=== PATIENT | female | born 1965 | race Caucasian/White ===

== ENCOUNTER 2017-01-16 15:03 | Emergency (ER) | payer BC ==
[2017-01-16 15:23] VITALS: BP 138/82
--- NOTE | 2017-01-16 15:53 | EDM.PDOC ---
Scribed by Lauren Broderick 01/16/17 5030 for Curry Miller MD ED HPI GENERAL MEDICAL PROBLEM - General Chief Complaint: Upper Extremity Injury/Pain Stated Complaint: SHOLDER PAIN [id number] Time Seen by Provider: 01/16/17 15:28 Source of Information: Reports: Patient, RN, RN Notes Reviewed History Limitations: Reports: No Limitations - History of Present Illness INITIAL COMMENTS - FREE TEXT/NARRATIVE: Complains of severe left shoulder pain for the past couple of days without specific injury. Has history of repetitive upper extremity work throughout her entire adult life. The pain is improved when the should is immobilized at rest and significantly increases with range of motion. 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) Left Shoulder Pain Score (Numeric/FACES): 8 - Related Data Allergies Allergy/AdvReac Type Severity Reaction Status Date / Time No Known Allergies Allergy Verified 01/16/17 15:13 Home Meds: Home Meds Citalopram Hydrobromide [Celexa] 1 tab PO DAILY 01/16/17 [History] Multivitamin [One Daily] 1 tab PO DAILY 01/16/17 [History] Past Medical History Psychiatric History: Reports: Depression Endocrine/Metabolic History: Reports: Obesity/BMI 30+ Social & Family History - Family History Family Medical History: Noncontributory - Tobacco Use Smoking Status *Q: Current Every Day Smoker Tobacco Use Within Last Twelve Months: Cigarettes Years of Tobacco use: 30 Packs/Tins Daily Comment: 1 Smoking Cessation Information Provided To Patient: Yes Second Hand Smoke Exposure: Yes - Caffeine Use Caffeine Use: Reports: Coffee - Alcohol Use Alcohol Use History: No - Recreational Drug Use Recreational Drug Use: No - Living Situation & Occupation Occupation: Employed Review of Systems - Review of Systems Review Of Systems: ROS reveals no pertinent complaints other than HPI. ED EXAM, GENERAL - Physical Exam Exam: See Below Exam Limited By: No Limitations General Appearance: Alert, WD/WN, No Apparent Distress Neck: Full Range of Motion Respiratory/Chest: No Respiratory Distress, Lungs Clear, Normal Breath Sounds, No Accessory Muscle Use, Chest Non-Tender Cardiovascular: Normal Peripheral Pulses, Regular Rate, Rhythm, No Edema, No Gallop, No JVD, No Murmur, No Rub Extremities: Other (left superior and anterior shoulder tender to palpation. No visible swelling, erythema, contusion, or deformity. Skin intact. Decreased ROM due to pain, unable to abduction left arm beyond 40degrees.) Neurological: Alert, Oriented, CN II-XII Intact, Normal Cognition, Normal Gait, Normal Reflexes, No Motor/Sensory Deficits Psychiatric: Normal Affect, Normal Mood Skin Exam: Warm, Dry, Intact, Normal Color, No Rash Course - Vital Signs Last Recorded V/S: Last Vital Signs Temp 36.8 C 01/16/17 15:08 Pulse 99 01/16/17 15:08 Resp 16 01/16/17 15:08 BP 138/82 01/16/17 15:08 Pulse Ox 95 01/16/17 15:08 Departure - Departure Time of Disposition: 15:38 Disposition: Home, Self-Care 01 Condition: Fair Clinical Impression: Rotator cuff syndrome of left shoulder - Discharge Information Instructions: Rotator Cuff Injury Forms: ED Department Discharge Additional Instructions: RX: [place] 5mg/325mg. *Do not drive or work while under the influence of this medication. Continue over the counter Aleve, follow directions on package label. Follow up in clinic this week for recheck and consideration of left shoulder MRI and orthopedic referral. I have read and agree with the documentation that has been completed regarding this visit. By signing this record, I attest that the documentation was completed in my physical presence and is an accurate record of the encounter.
== END 2017-01-16 16:00 | disposition home or self-care (01) ==
LOC: DL.ED 15:03
DX: M75.102 Unspecified rotator cuff tear or rupture of left shoulder, not specified as traumatic (principal); F32.9 Major depressive disorder, single episode, unspecified; F17.210 Nicotine dependence, cigarettes, uncomplicated; E66.9 Obesity, unspecified; Z79.899 Other long term (current) drug therapy; Z68.32 Body mass index [BMI] 32.0-32.9, adult
CPT/HCPCS: 99283

== ENCOUNTER 2017-10-20 10:00 | Emergency (ER) | payer OTHER, BC ==
[2017-10-20 10:50] VITALS: BP 152/81
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
== END 2017-10-20 11:48 | disposition home or self-care (01) ==
LOC: DL.ED 10:00
DX: S60.322A Blister (nonthermal) of left thumb, initial encounter (principal); S61.217A Laceration without foreign body of left little finger without damage to nail, initial encounter; E78.00 Pure hypercholesterolemia, unspecified; F17.210 Nicotine dependence, cigarettes, uncomplicated; Z79.899 Other long term (current) drug therapy; Z77.21 Contact with and (suspected) exposure to potentially hazardous body fluids; W26.9XXA Contact with unspecified sharp object(s), initial encounter
CPT/HCPCS: 36415; 86703; 86706; 86803; 99283

== ENCOUNTER 2020-06-12 17:21 | Emergency (ER) | payer OTHER, BC ==
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
== END 2020-06-12 18:37 | disposition home or self-care (01) ==
LOC: DL.ED 17:21
DX: S70.12XA Contusion of left thigh, initial encounter (principal); E66.9 Obesity, unspecified; V49.40XA Driver injured in collision with unspecified motor vehicles in traffic accident, initial encounter
CPT/HCPCS: 99284-25

== ENCOUNTER 2021-04-25 15:14 | Emergency (ER) | payer BC ==
[2021-04-25 15:56] VITALS: BP 117/57; PULSE 80
[2021-04-25 16:28] LABS: ANION GAP 12.4 mEq/L (7-13); CHLORIDE,CL 104 mmol/L (98-107); SODIUM,NA 143 mmol/L (136-145)
--- NOTE | 2021-04-25 16:35 | EDM.PDOC ---
Scribed by Lauren Broderick 04/25/21 7500 for Redd Rosales PA ED HPI GENERAL MEDICAL PROBLEM - General Chief Complaint: Gastrointestinal Problem Stated Complaint: AMBULANCE Time Seen by Provider: 04/25/21 15:35 Source of Information: Reports: Patient, EMS, EMS Notes Reviewed, RN, RN Notes Reviewed History Limitations: Reports: No Limitations - History of Present Illness INITIAL COMMENTS - FREE TEXT/NARRATIVE: Patient is a 55-year-old female patient brought to the ED by [facility] due to dizziness, weakness and nausea/vomiting. The patient re ports she is feeling better EMS treatment (Zofran and 1 liter LR). The patient has a history of breast cancer. The patient is currently getting chemo treatment 2 out of 8. Onset: Gradual Duration: Waxing/Waning Location: Reports: Abdomen Severity: Severe Improves with: Reports: None Worsens with: Reports: None Associated Symptoms: Reports: No Other Symptoms - Related Data Allergies Allergy/AdvReac Type Severity Reaction Status Date / Time No Known Allergies Allergy Verified 04/25/21 15:56 Home Meds: Home Meds Citalopram Hydrobromide [Celexa] 1 tab PO DAILY 01/16/17 [History] Multivitamin [One Daily] 1 tab PO DAILY 01/16/17 [History] Past Medical History HEENT History: Reports: Impaired Vision Other HEENT History: wears glasses Cardiovascular History: Reports: High Cholesterol Respiratory History: Reports: None Gastrointestinal History: Reports: None Genitourinary History: Reports: None 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 Musculoskeletal History: Reports: None Neurological History: Reports: None Psychiatric History: Reports: Depression Endocrine/Metabolic History: Reports: Obesity/BMI 30+ Hematologic History: Reports: None Immunologic History: Reports: None Oncologic (Cancer) History: Reports: None Dermatologic History: Reports: None - Infectious Disease History Infectious Disease History: Reports: Chicken Pox, Shingles - Past Surgical History Head Surgeries/Procedures: Reports: None Musculoskeletal Surgical History: Reports: None Social & Family History - Family History Family Medical History: No Pertinent Family History - Caffeine Use Caffeine Use: Reports: Soda - Living Situation & Occupation Occupation: Employed ED ROS GENERAL - Review of Systems Review Of Systems: Comprehensive ROS is negative, except as noted in HPI. ED EXAM, GI/ABD - Physical Exam Exam: See Below Exam Limited By: No Limitations General Appearance: Alert, WD/WN, No Apparent Distress Eyes: Bilateral: Normal Appearance Ears: Normal External Exam, Normal Canal, Hearing Grossly Normal, Normal TMs Nose: Normal Inspection, Normal Mucosa, No Blood Throat/Mouth: Normal Inspection, Normal Lips, Normal Teeth, Normal Gums, Normal Oropharynx, Normal Voice, No Airway Compromise Head: Atraumatic, Normocephalic Neck: Normal Inspection, Supple, Non-Tender, Full Range of Motion Respiratory/Chest: No Respiratory Distress, Lungs Clear, Normal Breath Sounds, No Accessory Muscle Use, Chest Non-Tender Cardiovascular: Normal Peripheral Pulses, Regular Rate, Rhythm, No Edema, No Gallop, No JVD, No Murmur, No Rub GI/Abdominal Exam: Normal Bowel Sounds, Soft, Non-Tender, No Organomegaly, No Distention, No Abnormal Bruit, No Mass, Pelvis Stable (Female) Exam: Deferred Rectal (Female) Exam: Deferred Back Exam: Normal Inspection, Full Range of Motion, NT Extremities: Normal Inspection, Normal Range of Motion, Non-Tender, Normal Capillary Refill, No Pedal Edema Neurological: Alert, Oriented, CN II-XII Intact, Normal Cognition, Normal Gait, Normal Reflexes, No Motor/Sensory Deficits Psychiatric: Normal Affect, Normal Mood Skin Exam: Warm, Dry, Intact, Normal Color, No Rash Lymphatic: No Adenopathy Course - Vital Signs Last Recorded V/S: Last Vital Signs Temp 96.5 F L 04/25/21 15:20 Pulse 80 04/25/21 15:20 Resp 15 04/25/21 15:20 BP 117/57 L 04/25/21 15:20 Pulse Ox 94 L 04/25/21 15:20 - Orders/Labs/Meds Orders: Active Orders 24 hr Category Date Time Status CBC WITH AUTO DIFF [HEME] Stat Lab 04/25/21 15:35 Ordered CULTURE URINE [RM] Urgent Lab 04/25/21 15:44 Received MANUAL DIFFERENTIAL QA/NC [HEME] Stat Lab 04/25/21 15:59 Results Labs: Laboratory Tests 04/25/21 04/25/21 04/25/21 Range/Units 15:44 15:59 15:59 WBC 14.9 H (5.0-10.0) 10^3/uL RBC 3.09 L (4.2-5.4) 10^6/uL Hgb 9.5 L D (12.0-16.0) g/dL Hct 30.0 L (37.0-47.0) % MCV 97.1 D (80-100) fL MCH 30.7 (27.0-34.0) pg MCHC 31.7 L (33.0-35.0) g/dL Plt Count 222 D (150-450) 10^3/uL Add Manual Diff Yes Sodium 143 (136-145) mmol/L Potassium 3.4 L (3.5-5.1) mmol/L Chloride 104 (98-107) mmol/L Carbon Dioxide 30 (21-32) mmol/L Anion Gap 12.4 (7-13) mEq/L BUN 26 H (7-18) mg/dL Creatinine 0.88 (0.55-1.02) mg/dL Est Cr Clr Drug Dosing 57.80 mL/min Estimated GFR (MDRD) > 60 BUN/Creatinine Ratio 29.5 (No establ ref range) Glucose 99 (70-99) mg/dL Calcium 8.3 L (8.5-10.1) mg/dL Total Bilirubin 0.7 (0.2-1.0) mg/dL AST 16 (15-37) U/L ALT 36 (14-59) U/L Alkaline Phosphatase 85 (46-116) U/L Total Protein 5.7 L (6.4-8.2) g/dL Albumin 3.1 L (3.4-5.0) g/dL Globulin 2.6 Albumin/Globulin Ratio 1.19 Urine Color Yellow (YELLOW) Urine Appearance Slightly cloudy (CLEAR) Urine pH 5.5 (5.0-9.0) Ur Specific [place] 1.025 (1.005-1.030) Urine Protein 100 H (NEGATIVE) Urine Glucose (UA) Negative (NEGATIVE) Urine Ketones Trace H (NEGATIVE) Urine Occult Blood Small H (NEGATIVE) Urine Nitrite Negative (NEGATIVE) Urine Bilirubin Negative (NEGATIVE) Urine Urobilinogen 0.2 (0.2-1.0) mg/dL Ur Leukocyte Esterase Large H (NEGATIVE) Urine RBC 5-10 H (0-5) /HPF Urine WBC >100 H (0-5/HPF) /HPF Ur Epithelial Cells Many H (NOT SEEN) /HPF Urine Bacteria Many H (0-FEW/HPF) /HPF Departure - Departure Time of Disposition: 16:32 Disposition: Home, Self-Care 01 Condition: Fair Clinical Impression: Dizziness - Discharge Information *PRESCRIPTION DRUG MONITORING PROGRAM REVIEWED*: Not Applicable *COPY OF PRESCRIPTION DRUG MONITORING REPORT IN PATIENT DINA: Not Applicable Instructions: Dizziness, [id number] Forms: ED Department Discharge Care Plan Goals: The patient was advised of the examination and lab results during the visit. The patient was given a liter of IV fluids and Zofran by EMS with resolution of her symptoms. The patient was encouraged to increase her oral fluid intake and rest/relax for the remainder of the day. If the patient has any additional symptoms or concerns, the patient should either return to the emergency department or visit her primary care facility. Sepsis Event Note (ED) - Evaluation Sepsis Screening Result: No Definite Risk - Focused Exam Vital Signs: Vital Signs Temp Pulse Resp BP Pulse Ox 04/25/21 15:20 96.5 F L 80 15 117/57 L 94 L - My Orders Last 24 Hours: My Active Orders 04/25/21 15:35 CBC WITH AUTO DIFF [HEME] Stat 04/25/21 15:44 CULTURE URINE [RM] Urgent 04/25/21 15:59 MANUAL DIFFERENTIAL QA/NC [HEME] Stat - Assessment/Plan Last 24 Hours: My Active Orders 04/25/21 15:35 CBC WITH AUTO DIFF [HEME] Stat 04/25/21 15:44 CULTURE URINE [RM] Urgent 04/25/21 15:59 MANUAL DIFFERENTIAL QA/NC [HEME] Stat I have read and agree with the documentation that has been completed regarding this visit. By signing this record, I attest that the documentation was completed in my physical presence and is an accurate record of the encounter.
== END 2021-04-25 16:51 | disposition home or self-care (01) ==
LOC: DL.ED 15:14
DX: R42 Dizziness and giddiness (principal); E66.9 Obesity, unspecified; Z68.34 Body mass index [BMI] 34.0-34.9, adult
CPT/HCPCS: 36415; 80053; 81001; 85025; 87086; 87088; 87186; 99284

== ENCOUNTER 2021-04-28 09:56 | Emergency (ER) | payer BC ==
--- NOTE | 2021-04-28 10:21 | EDM.PDOC ---
ED HPI GENERAL MEDICAL PROBLEM - General Stated Complaint: LOW BLOOD PRESSURE Time Seen by Provider: 04/28/21 09:57 Source of Information: Reports: Patient, Old Records, Provider (Infusion center RN), RN, RN Notes Reviewed History Limitations: Reports: No Limitations - History of Present Illness INITIAL COMMENTS - FREE TEXT/NARRATIVE: Alondra is a 55 y/o female with a history of breast cancer, currently receiving chemotherapy, who presents to the ED from [facility] at the request of her oncology [employer]ISUAL LEAD for hypotension. The patient's last chemotherapy infusion was seven days ago (04/21/21), she was presenting today for her weekly CBC. Upon arrival to the infusion center the patient was noted to be hypotensive and tachycardic with SBP readings in the 80s and HR 110s. The patient reports he has not been taking her Lisinopril at home due to increased diarrhea over the past several days, however she did take it today. She denies fever, shaking chills, chest pain/pressure, palpitations, shortness of breath, abdominal pain, nausea, vomiting, dyspepsia, dysuria, or hematuria. She denies hematochezia or melena. - Related Data Allergies Allergy/AdvReac Type Severity Reaction Status Date / Time No Known Allergies Allergy Verified 04/28/21 10:29 Home Meds: Home Meds Citalopram Hydrobromide [Celexa] 1 tab PO DAILY 01/16/17 [History] Multivitamin [One Daily] 1 tab PO DAILY 01/16/17 [History] Citalopram Hydrobromide [Celexa] 40 mg PO 04/28/21 [History] Levothyroxine 25 mcg PO ACBREAKFAST 04/28/21 [History] atorvaSTATin [Lipitor] 20 mg PO 04/28/21 [History] lisinopriL [Lisinopril] 20 mg PO 04/28/21 [History] Past Medical History HEENT History: Reports: Impaired Vision Other HEENT History: wears glasses Cardiovascular History: Reports: High Cholesterol Respiratory History: Reports: None Gastrointestinal History: Reports: None Genitourinary History: Reports: None GANDY DANCER History: Reports: None Musculoskeletal History: Reports: None Neurological History: Reports: None Psychiatric History: Reports: Depression Endocrine/Metabolic History: Reports: Obesity/BMI 30+ Hematologic History: Reports: None Immunologic History: Reports: None Oncologic (Cancer) History: Reports: None Dermatologic History: Reports: None - Infectious Disease History Infectious Disease History: Reports: Chicken Pox, Shingles - Past Surgical History Head Surgeries/Procedures: Reports: None Musculoskeletal Surgical History: Reports: None Social & Family History - Family History Family Medical History: No Pertinent Family History - Caffeine Use Caffeine Use: Reports: None - Living Situation & Occupation Occupation: Employed ED ROS GENERAL - Review of Systems Review Of Systems: Comprehensive ROS is negative, except as noted in HPI. ED EXAM, GENERAL - Physical Exam Exam: See Below Exam Limited By: No Limitations General Appearance: Alert, No Apparent Distress, Other (Ill-appearing female) Eye Exam: Bilateral Eye: EOMI, Normal Inspection, PERRL (3mm) Ears: Normal External Exam, Hearing Grossly Normal Nose: Normal Inspection Throat/Mouth: Normal Inspection, Normal Oropharynx, Normal Voice, No Airway Compromise Head: Atraumatic, Normocephalic Neck: Normal Inspection, Supple, Non-Tender, Full Range of Motion. No: Lymphadenopathy (L), Lymphadenopathy (R) Respiratory/Chest: No Respiratory Distress, Lungs Clear, Normal Breath Sounds, No Accessory Muscle Use, Chest Non-Tender Cardiovascular: Normal Peripheral Pulses, Regular Rate, Rhythm, No Edema, No Gallop, No JVD, No Murmur, No Rub Peripheral Pulses: 2+: Radial (L), Radial (R) GI/Abdominal: Normal Bowel Sounds, Soft, Non-Tender, No Distention, No Abnormal Bruit, No Mass, Pelvis Stable. No: Guarding, Rigid, Rebound (Female) Exam: Deferred Rectal (Female) Exam: Deferred Back Exam: Normal Inspection, Full Range of Motion Extremities: Normal Inspection, Normal Range of Motion, Normal Capillary Refill Neurological: Alert, Oriented, CN II-XII Intact, Normal Cognition, Normal Gait, No Motor/Sensory Deficits Psychiatric: Normal Affect, Normal Mood Skin Exam: Warm, Dry, Intact, Normal Color, No Rash. No: Cyanosis, Jaundice, Mottled, Pallor Course - Vital Signs Last Recorded V/S: Last Vital Signs Temp 97.7 F 04/28/21 10:25 Pulse 95 04/28/21 10:25 Resp 12 04/28/21 10:25 BP 95/56 L 04/28/21 10:25 Pulse Ox 95 04/28/21 10:25 Orthostatic Blood Pressure [ 104/56 Standing] Orthostatic Blood Pressure [ 103/56 Sitting] Orthostatic Blood Pressure [ 119/53 Supine] - Orders/Labs/Meds Labs: Laboratory Tests 04/28/21 04/28/21 04/28/21 Range/Units 10:12 10:12 10:12 WBC 14.4 H (5.0-10.0) 10^3/uL RBC 3.56 L (4.2-5.4) 10^6/uL Hgb 10.9 L (12.0-16.0) g/dL Hct 33.6 L (37.0-47.0) % MCV 94.4 (80-100) fL MCH 30.6 (27.0-34.0) pg MCHC 32.4 L (33.0-35.0) g/dL Plt Count 249 (150-450) 10^3/uL Neut % (Auto) 65.2 (42.2-75.2) % Lymph % (Auto) 20.0 L (20.5-50.1) % Crook % (Auto) 14.6 H (2-8) % Eos % (Auto) 0.1 L (1.0-3.0) % Baso % (Auto) 0.1 (0.0-1.0) % Add Manual Diff Yes Neutrophils % (Manual) 57 (42-75) % Band Neutrophils % 11 % Lymphocytes % (Manual) 16 L (20-50) % Atypical Lymphs % 1 % Monocytes % (Manual) 14 H (2-8) % Metamyelocytes % 1 Sodium 139 (136-145) mmol/L Potassium 3.1 L (3.5-5.1) mmol/L Chloride 99 (98-107) mmol/L Carbon Dioxide 27 (21-32) mmol/L Anion Gap 16.1 H (7-13) mEq/L BUN 12 (7-18) mg/dL Creatinine 0.98 (0.55-1.02) mg/dL Est Cr Clr Drug Dosing 61.43 mL/min Estimated GFR (MDRD) 59 BUN/Creatinine Ratio 12.2 (No establ ref range) Glucose 171 H (70-99) mg/dL Lactic Acid 3.7 H* (0.4-2.0) mmol/L Calcium 8.6 (8.5-10.1) mg/dL Magnesium 1.6 L (1.8-2.4) mg/dL Total Bilirubin 0.3 (0.2-1.0) mg/dL AST 14 L (15-37) U/L ALT 32 (14-59) U/L Alkaline Phosphatase 117 H (46-116) U/L C-Reactive Protein 0.6 (0.0-0.9) mg/dL Total Protein 6.6 (6.4-8.2) g/dL Albumin 3.4 (3.4-5.0) g/dL Globulin 3.2 Albumin/Globulin Ratio 1.1 Influenza Type A RNA (NEGATIVE) Influenza Type B RNA (NEGATIVE) SARS-CoV-2 RNA (JEOVANY) (NEGATIVE) 04/28/21 Range/Units 10:56 WBC (5.0-10.0) 10^3/uL RBC (4.2-5.4) 10^6/uL Hgb (12.0-16.0) g/dL Hct (37.0-47.0) % MCV (80-100) fL MCH (27.0-34.0) pg MCHC (33.0-35.0) g/dL Plt Count (150-450) 10^3/uL Neut % (Auto) (42.2-75.2) % Lymph % (Auto) (20.5-50.1) % Crook % (Auto) (2-8) % Eos % (Auto) (1.0-3.0) % Baso % (Auto) (0.0-1.0) % Add Manual Diff Neutrophils % (Manual) (42-75) % Band Neutrophils % % Lymphocytes % (Manual) (20-50) % Atypical Lymphs % % Monocytes % (Manual) (2-8) % Metamyelocytes % Sodium (136-145) mmol/L Potassium (3.5-5.1) mmol/L Chloride (98-107) mmol/L Carbon Dioxide (21-32) mmol/L Anion Gap (7-13) mEq/L BUN (7-18) mg/dL Creatinine (0.55-1.02) mg/dL Est Cr Clr Drug Dosing mL/min Estimated GFR (MDRD) BUN/Creatinine Ratio (No establ ref range) Glucose (70-99) mg/dL Lactic Acid (0.4-2.0) mmol/L Calcium (8.5-10.1) mg/dL Magnesium (1.8-2.4) mg/dL Total Bilirubin (0.2-1.0) mg/dL AST (15-37) U/L ALT (14-59) U/L Alkaline Phosphatase (46-116) U/L C-Reactive Protein (0.0-0.9) mg/dL Total Protein (6.4-8.2) g/dL Albumin (3.4-5.0) g/dL Globulin Albumin/Globulin Ratio Influenza Type A RNA Negative (NEGATIVE) Influenza Type B RNA Negative (NEGATIVE) SARS-CoV-2 RNA (JEOVANY) Negative (NEGATIVE) Meds: Medications Discontinued Medications Generic Name Dose Route Start Last Admin Trade Name Freq PRN Reason Stop Dose Admin Heparin Sodium (Porcine) 500 units 04/28/21 14:27 04/28/21 14:45 Heparin Sodium 100 Units/Ml 5 Ml Syringe FLUSH 04/28/21 14:28 500 units ONETIME ONE Administration Heparin Sodium (Porcine) Confirm 04/28/21 14:27 04/28/21 14:45 Heparin Sodium 100 Units/Ml 5 Ml Syringe Administered 04/28/21 14:28 Not Given Dose 500 units .ROUTE .STK-MED ONE Heparin Sodium (Porcine) 500 units 04/28/21 14:44 Heparin Sodium 100 Units/Ml 5 Ml Syringe FLUSH ASDIRECTED PRN Keep Vein Open Sodium Chloride 1,000 mls @ 999 mls/hr 04/28/21 10:30 04/28/21 10:21 Normal Saline IV 999 mls/hr ASDIRECTED RUBÉN Administration Magnesium Sulfate 2 gm/ Premix 50 mls @ 25 mls/hr 04/28/21 11:15 04/28/21 11:44 IV 04/28/21 13:14 25 mls/hr ONETIME ONE Administration Potassium Chloride 20 meq/ 100 mls @ 50 mls/hr 04/28/21 11:15 04/28/21 11:45 Premix IV 04/28/21 13:14 50 mls/hr ONETIME ONE Administration Sodium Chloride 1,000 mls @ 999 mls/hr 04/28/21 12:15 04/28/21 12:09 Normal Saline IV 999 mls/hr ASDIRECTED RUBÉN Administration - Re-Assessments/Exams Free Text/Narrative Re-Assessment/Exam: 04/28/21 NS 1L bolus initiated. Mag Sulfate 2gm IVPB and Potassium Chloride 20mEq IVPB administered. Additional NS 1L bolus administered for decreased blood pressures. Findings of examination and lab work reviewed with patient. Discussed checking blood pressure prior to taking antihypertensive medications, especially post- chemotherapy. Patient instructed to follow up with primary care provider and oncologist regarding todays visit. Red flag signs and symptoms which would warrant immediate reevaluation reviewed. Patient verbalized understanding and agreement with the plan of care. Departure - Departure Time of Disposition: 14:23 Disposition: Home, Self-Care 01 Condition: Good Clinical Impression: Hypotension Qualifiers: Hypotension type: hypotension due to drug Qualified Code(s): I95.2 - Hypotension due to drugs - Discharge Information *PRESCRIPTION DRUG MONITORING PROGRAM REVIEWED*: Not Applicable *COPY OF PRESCRIPTION DRUG MONITORING REPORT IN PATIENT DINA: Not Applicable Instructions: Hypotension Referrals: Blanche Rebollar NP [Primary Care Provider] - Forms: ED Department Discharge Additional Instructions: 1.) Continue on your previously prescribed medications, however check your blood pressure every morning prior to taking your Lisinopril. Should you have a blood pressure reading less than 120 (on the top number), do not take your Lisinopril. 2.) Follow up with your primary care provider and oncologist regarding today's visit. 3.) Continue taking Imodium as needed for persistent diarrhea following chemotherapy. 4.) Drink small, frequent sips of fluids to stay hydrated and avoid nausea. 5.) Return to the emergency department with any return of symptoms.
[2021-04-28 10:29] VITALS: BP 95/56; PULSE 95
[2021-04-28] MEDS ORDERED: Sodium Chloride 0.9% 1,000 ML IV SCH ×2 (10:30→12:15)
[2021-04-28 10:42] LABS: ANION GAP 16.1 mEq/L (7-13)
[2021-04-28] MEDS ORDERED: Potassium Chloride 20 MEQ in Premix Bag 1 BAG IV ONE (11:15)
[2021-04-28 11:43] LABS: CORONAVIRUS COVID-19 NAA NEGATIVE (NEGATIVE)
[2021-04-28] MEDS: Magnesium Sulfate/Water 2 GM in Premix Bag 1 BAG IV ONE (11:44)
== END 2021-04-28 14:47 | disposition home or self-care (01) ==
LOC: DL.ED 09:56
DX: I95.2 Hypotension due to drugs (principal); T50.905A Adverse effect of unspecified drugs, medicaments and biological substances, initial encounter; I10 Essential (primary) hypertension; E78.00 Pure hypercholesterolemia, unspecified; E66.9 Obesity, unspecified; Z68.28 Body mass index [BMI] 28.0-28.9, adult; Z20.822 Contact with and (suspected) exposure to COVID-19
CPT/HCPCS: 0240U; 36415; 80053; 83605; 83735; 85025; 86140; 96365; 96366; 96368; 99284; J1642; J3475; J3480; J7030

== ENCOUNTER 2022-10-25 11:29 | Emergency (ER) | payer BC ==
[2022-10-25 11:33] VITALS: BP 110/60; PULSE 98
[2022-10-25] MEDS ORDERED: Sodium Chloride 0.9% 10 ML Syringe FLUSH PRN (11:36)
[2022-10-25 11:43] LABS: BASOPHILS PERCENT AUTO 0.3 % (0.0-1.0); HEMATOCRIT 38.7 % (37.0-47.0); HEMOGLOBIN 13.1 g/dL (12.0-16.0); LYMPHOCYTES PERCENT AUTO 9.4 % (20.5-50.1); MEAN CORPUSCULAR HEMOGLOBIN 30.5 pg (27.0-34.0); MEAN CORPUSCULAR HGB CONC 33.9 g/dL (33.0-35.0); MEAN CORPUSCULAR VOLUME 90.2 fL (80-100); MONOCYTES PERCENT AUTO 5.1 % (2-8); NEUTROPHILS PERCENT AUTO 84.2 % (42.2-75.2); PLATELET COUNT,PLT 201 10^3/uL (150-450); RED BLOOD CELL COUNT 4.29 10^6/uL (4.2-5.4); WHITE BLOOD CELL COUNT,WBC 3.9 10^3/uL (5.0-10.0)
[2022-10-25 12:13] LABS: A/G RATIO 1.1; ALBUMIN 3.5 g/dL (3.4-5.0); ANION GAP 15.3 mEq/L (7-13); BILIRUBIN TOTAL 0.8 mg/dL (0.2-1.0); BUN/CREATININE RATIO 26.7 (No establ ref range); CALCIUM 10.7 mg/dL (8.5-10.1); CREATININE 1.01 mg/dL (0.55-1.02); EST CRCL DRUG DOSING (CG) 51.45 mL/min; POTASSIUM,K 4.3 mmol/L (3.5-5.1); PROTEIN TOTAL,TP 6.8 g/dL (6.4-8.2)
[2022-10-25] MEDS ORDERED: Iopamidol 612 MG/ML 100 ML Bottle IVPUSH ONE (12:21)
[2022-10-25] MEDS ORDERED: Sodium Chloride 0.9% 1,000 ML IV ONE (12:21)
[2022-10-25] MEDS ORDERED: Ondansetron 4 MG/2 ML SDV IV ONE (13:12)
[2022-10-25] MEDS ORDERED: HYDROmorphone 1 MG/ML Syringe IVPUSH ONE (13:12)
== END 2022-10-25 14:13 | disposition home or self-care (01) ==
LOC: DL.ED 11:29
DX: I82.721 Chronic embolism and thrombosis of deep veins of right upper extremity (principal); R06.02 Shortness of breath; E78.00 Pure hypercholesterolemia, unspecified; I10 Essential (primary) hypertension; E03.9 Hypothyroidism, unspecified; F17.210 Nicotine dependence, cigarettes, uncomplicated; E66.9 Obesity, unspecified; Z79.899 Other long term (current) drug therapy
CPT/HCPCS: 36415; 71260; 80053; 83880; 84484; 85025; 93005; 93010; 96361; 96374; 96375; 99284; 99285-25; J1170; J2405; J3490; J7030; Q9967

== ENCOUNTER 2023-12-20 18:05 | Emergency (ER) | payer MEDICAID ==
[2023-12-20 20:38] VITALS: BP 142/63; PULSE 103
== END 2023-12-20 21:50 | disposition home or self-care (01) ==
LOC: DL.ED 18:05
DX: S93.402A Sprain of unspecified ligament of left ankle, initial encounter (principal); I10 Essential (primary) hypertension; E78.00 Pure hypercholesterolemia, unspecified; E66.9 Obesity, unspecified; E03.9 Hypothyroidism, unspecified; Z79.890 Hormone replacement therapy; Z79.899 Other long term (current) drug therapy; Z68.34 Body mass index [BMI] 34.0-34.9, adult; X50.1XXA Overexertion from prolonged static or awkward postures, initial encounter
CPT/HCPCS: 73600-LT; 99283